=== PATIENT | male | born 1985 | race Caucasian/White ===

== ENCOUNTER 2021-08-02 16:41 | Emergency (ER) | payer OTHER ==
[~2021-08-02] VITALS: Ht 180.3 cm; Wt 91.6 kg
[2021-08-02] MEDS ORDERED: ACETAMINOPHEN 500 MG TABLET PO ONE (17:00)
[2021-08-02] MEDS ORDERED: IBUPROFEN 600 MG TABLET. PO ONE (17:00)
[2021-08-02 17:36] LABS: BASO % 1 % (0-3); EOS # 0.4 x10^3/uL (0.0-0.7); EOS % 6 % (0-3); HEMATOCRIT 44.9 % (39.0-53.0); HEMOGLOBIN 15.6 g/dL (13.0-17.5); LYMPH # 2.1 x10^3/uL (1.0-4.8); LYMPH % 29 % (24-48); MEAN CORPUSCULAR HEMOGLOBIN 30 pg (25-35); MEAN CORPUSCULAR HGB CONC 35 g/dL (31-37); MEAN CORPUSCULAR VOLUME 87 fL (79-100); MONO # 0.5 x10^3/uL (0.0-1.1); MONO % 7 % (0-9); NEUT % 57 % (31-73); PLATELET COUNT 306 x10^3/uL (140-400); RED BLOOD COUNT 5.19 x10^6/uL (4.30-5.70); RED CELL DISTRIBUTION WIDTH 12.8 % (11.5-14.5); WHITE BLOOD COUNT 7.1 x10^3/uL (4.0-11.0)
--- NOTE | 2021-08-02 17:38 | EKG ---
[address] [address] Test Date: 2021-08-02 Test Time: 16:49:28 Pat Name: MARINA PYLE Department: Room: Gender: M Purchasing Expeditor: FAINA : 1985 Requested By: DEPARTMENT EMERGENCY Order Number: [id number] Reading MD: Jung Knight Measurements Intervals [place] Rate: 67 P: 37 AL: 174 QRS: 9 QRSD: 96 T: 11 QT: 378 QTc: 402 Interpretive Statements SINUS RHYTHM NORMAL ECG RI6.02 No previous ECG available for comparison Electronically Signed On 08-03-2021 14:21:37 FINANCIAL COMPLIANCE EXAMINER by Jung Knight
--- NOTE | 2021-08-02 17:42 | RAD ---
EXAMINATION: Chest radiograph. VIEWS: Single AP view of chest COMPARISON: None INDICATION:35 years, Male, chest pain. FINDINGS: Normal cardiomediastinal silhouette. No focal consolidation. No pleural effusion or pneumothorax. No acute osseous process. IMPRESSION: No acute cardiopulmonary process. Electronically signed by: Jero Orellana DO (08/02/2021 5:40 PM) [facility]
[2021-08-02 17:50] LABS: CALCIUM 8.9 mg/dL (8.5-10.1); CREATININE 1.1 mg/dL (0.7-1.3); GFR 76.6
--- NOTE | 2021-08-02 18:20 | PHYS DOC ---
Past History Past Surgical History: Other Additional Past Surgical Histo: WISDOM TEETH (BRONSON HOPPER APRN) Alcohol Use: Rarely (BRONSON HOPPER APRN) Adult General Chief Complaint Chief Complaint: CHEST PAIN HPI HPI Patient is a 35-year-old male patient with no significant medical history who presents to the ED today complaining of a sharp 5 out of 10 diffuse chest pain, symptoms have been going on for 6 weeks. Patient states symptoms are worse when he is stretching in the morning. He states the symptoms began a few days after moving into a new house 6 weeks ago. Patient denies any trauma. Patient states the pain is relieved by immobilization. Patient denies any fever, coughing, congestion, denies any personal family history of cardiac events before the age of 50. Denies being a smoker. (BRONSON HOPPER APRN) Review of Systems Review of Systems Constitutional: Denies fever or chills [] Eyes: Denies change in visual acuity, redness, or eye pain [] HENT: Denies nasal congestion or sore throat [] Respiratory: Denies cough or shortness of breath [] Cardiovascular: reports chest pain[] GI: Denies abdominal pain, nausea, vomiting, bloody stools or diarrhea [] : Denies dysuria or hematuria [] Musculoskeletal: Denies back pain or joint pain [] Integument: Denies rash or skin lesions [] Neurologic: Denies headache, focal weakness or sensory changes [] All other systems were reviewed and found to be within normal limits, except as documented in this note. (BRONSON HPOPER APRN) Current Medications Current Medications Current Medications Medications (Trade) Dose Ordered Sig/Nikole Start Time Stop Time Status Last Admin Dose Admin Acetaminophen (Tylenol) 1,000 mg 1X ONCE 08/02/21 17:00 08/02/21 16:58 DC Ibuprofen (Motrin) 600 mg 1X ONCE 08/02/21 17:00 08/02/21 16:58 DC (BRONSON HOPPER [employer] CRM DEVELOPER) Allergies Allergies Allergies Coded Allergies Type Severity Reaction Last Updated Verified No Known Drug Allergies 08/02/21 No (BRONSON HOPPER APRN) Physical Exam Physical Exam Constitutional: Well developed, well nourished, no acute distress, non-toxic appearance. [] HENT: Normocephalic, atraumatic, bilateral external ears normal, oropharynx moist, no oral exudates, nose normal. [] Eyes: PERRLA, EOMI, conjunctiva normal, no discharge. [] Neck: Normal range of motion, no tenderness, supple, no stridor. [] Cardiovascular:Heart rate regular rhythm, no murmur [] Lungs & Thorax: Bilateral breath sounds clear to auscultation [] Abdomen: Bowel sounds normal, soft, no tenderness, no masses, no pulsatile masses. [] Skin: Warm, dry, no erythema, no rash. [] Back: No tenderness, no CVA tenderness. [] Extremities: No tenderness, no cyanosis, no clubbing, ROM intact, no edema. [] Neurologic: Alert and oriented X 3, normal motor function, normal sensory function, no focal deficits noted. [] Psychologic: Affect normal, judgement normal, mood normal. [] (BRONSON HOPPER [employer] CRM DEVELOPER) Current Patient Data Vital Signs Vital Signs Date Time Temp Pulse Resp B/P (MAP) Pulse Ox O2 Delivery O2 Flow Rate FiO2 08/02/21 16:50 97.9 62 20 155/82 (106) 98 Room Air Lab Results Laboratory Tests Test 08/02/21 17:15 White Blood Count 7.1 x10^3/uL (4.0-11.0) Red Blood Count 5.19 x10^6/uL (4.30-5.70) Hemoglobin 15.6 g/dL (13.0-17.5) Hematocrit 44.9 % (39.0-53.0) Mean Corpuscular Volume 87 fL (79-100) Mean Corpuscular Hemoglobin 30 pg (25-35) Mean Corpuscular Hemoglobin Concent 35 g/dL (31-37) Red Cell Distribution Width 12.8 % (11.5-14.5) Platelet Count 306 x10^3/uL (140-400) Neutrophils (%) (Auto) 57 % (31-73) Lymphocytes (%) (Auto) 29 % (24-48) Monocytes (%) (Auto) 7 % (0-9) Eosinophils (%) (Auto) 6 % (0-3) H Basophils (%) (Auto) 1 % (0-3) Neutrophils # (Auto) 4.0 x10^3uL (1.8-7.7) Lymphocytes # (Auto) 2.1 x10^3/uL (1.0-4.8) Monocytes # (Auto) 0.5 x10^3/uL (0.0-1.1) Eosinophils # (Auto) 0.4 x10^3/uL (0.0-0.7) Basophils # (Auto) 0.0 x10^3/uL (0.0-0.2) Sodium Level 139 mmol/L (136-145) Potassium Level 4.0 mmol/L (3.5-5.1) Chloride Level 103 mmol/L (98-107) Carbon Dioxide Level 28 mmol/L (21-32) Anion Gap 8 (6-14) Blood Urea Nitrogen 14 mg/dL (8-26) Creatinine 1.1 mg/dL (0.7-1.3) Estimated GFR (Cockcroft-Gault) 76.6 Glucose Level 122 mg/dL (70-99) H Calcium Level 8.9 mg/dL (8.5-10.1) Troponin I High Sensitivity 7 ng/L (4-75) (BRONSON HOPPER APRN) EKG EKG [address] Eller sinus rhythm heart rate 67 no STEMI [] (BRONSON HOPPER APRN) Radiology/Procedures Radiology/Procedures []PROCEDURE: CHEST AP ONLY EXAMINATION: Chest radiograph. VIEWS: Single AP view of chest COMPARISON: None INDICATION:35 years, Male, chest pain. FINDINGS: Normal cardiomediastinal silhouette. No focal consolidation. No pleural effusion or pneumothorax. No acute osseous process. IMPRESSION: No acute cardiopulmonary process. Electronically signed by: Carol Ann Orellana DO (08/02/2021 5:40 PM) [facility] DICTATED AND SIGNED BY: CAROL ANN ORELLANA DO DATE: 08/02/211738 CC: NATANAEL DIEHL APRN; EMERGENCY,DEPARTMENT; PCP,NO ~MTH0 0 (BRONSON HOPPER APRN) Heart Score C/O Chest Pain: Yes HEART Score for Chest Pain: HEART Score for Chest Pain Response (Comments) Value History Slighlty/Non-Suspicious 0 ECG Normal 0 Age < 45 0 Risk Factors No Risk Factors 0 Troponin < Normal Limit 0 Total 0 Risk Factors: Risk Factors: DM, Current or recent (<one month) smoker, HTN, HLP, family history of CAD, obesity. Risk Scores: Risk Factors: DM, Current or recent (<one month) smoker, HTN, HLP, family history of CAD, obesity. (BRONSON HOPPER APRN) Course & Med Decision Making Course & Med Decision Making Pertinent Labs and Imaging studies reviewed. (See chart for details) This is a 35-year-old male patient presented to the ED today with chest pain that began 6 weeks ago after moving into a new house. Patient's pain appears muscle skeletal. Cardiac work-up including EKG, troponin, chest x-ray, CBC and CMP are negative for any acute findings. Vitals are stable. He was discharged to home. Follow-up with datapower developer and PCP. (BRONSON HOPPER APRN) Dragon Disclaimer Dragon Disclaimer This electronic medical record was generated, in whole or in part, using a voice recognition dictation system. (BRONSON HOPPER APRN) Departure Departure: Impression: Primary Impression: Chest pain Disposition: HOME / SELF CARE / HOMELESS Condition: STABLE Referrals: PCPNEETA (PCP) KEHINDE CONNOR MD follow up in 1-2 weeks Patient Instructions: Chest Pain (Nonspecific), [id number] Additional Instructions: You were evaluated in the emergency room for chest pain. We highly encourage you to follow-up with your primary care doctor as well as a datapower developer. You can take Tylenol or Motrin as needed for pain. Please come back to the ED at any point symptoms worsen Attending Signature Attending Signature I have participated in the care of this patient and I have reviewed and agree with all pertinent clinical information above including history, exam, and recommendations. (JIA ELLINGTON MD) Problem Qualifiers Primary Impression: Chest pain Chest pain type: unspecified Qualified Codes: R07.9 - Chest pain, unspecified BRONSON HOPPER APRN Aug 02, 2021 18:20 JIA ELLINGTON MD Aug 08, 2021 02:44
[2021-08-02 18:25] VITALS: BP 141/74
== END 2021-08-02 18:25 | disposition home or self-care (01) ==
LOC: ER 16:41
DX: R07.89 Other chest pain (principal)
CPT/HCPCS: 36415; 71045; 80048; 84484; 85025; 93005; 99285